=== PATIENT | male | born 1990 | race African-American/Black ===

== ENCOUNTER 2017-07-28 08:29 | Emergency (ER) | payer SELFPAY ==
[2017-07-28] MEDS: ONDANSETRON ODT 4 MG TAB.RAPDIS. PO (08:59)
== END 2017-07-28 09:43 | disposition home or self-care (01) ==
LOC: ER 08:29
DX: K52.9 Noninfective gastroenteritis and colitis, unspecified (principal); F14.10 Cocaine abuse, uncomplicated; F12.10 Cannabis abuse, uncomplicated
CPT/HCPCS: 99283; Q0162

== ENCOUNTER 2021-02-07 15:22 | Emergency (ER) | payer SELFPAY ==
[2017-07-28 08:35] VITALS: BP 130/80
[~2021-02-07 15:22] MED LIST: ACET-704 PO; ONDA4TAB10 SL; SULF1TAB24 PO
== END 2021-02-07 17:00 | disposition left against medical advice (07) ==
LOC: ER 15:22
DX: S69.91XA Unspecified injury of right wrist, hand and finger(s), initial encounter (principal); Z53.21 Procedure and treatment not carried out due to patient leaving prior to being seen by health care provider; X58.XXXA Exposure to other specified factors, initial encounter; Y93.89 Activity, other specified; Y92.89 Other specified places as the place of occurrence of the external cause; Y99.8 Other external cause status